=== PATIENT | female | born 1990 | race Caucasian/White ===

== ENCOUNTER 2023-02-21 08:28 | Outpatient (CLI) | payer OTHER, SELFPAY ==
--- NOTE | 2023-02-21 08:45 | CRLHL7_ITS ---
For Patients: As a result of the Cures Act, medical imaging exams and procedure reports are released immediately into your electronic medical record. You may view this report before your referring provider. If you have questions, please contact your health care provider. DIGITAL DIAGNOSTIC RIGHT MAMMOGRAM USING TOMOSYNTHESIS AND COMPUTER-AIDED DETECTION RIGHT BREAST ULTRASOUND CLINICAL HISTORY: RIGHT breast lump. COMPARISON: None. TECHNIQUE: Digital RIGHT mammogram in two projections. Tomosynthesis and CAD utilized. Real-time ultrasound imaging of RIGHT breast with imaging documentation. BREAST COMPOSITION: The breast is extremely dense, which lowers the sensitivity of mammography. FINDINGS: 3D CC/MLO RIGHT breast mammogram images submitted. No suspicious masses or architectural distortion. Benign calcifications. No adenopathy. Targeted RIGHT breast ultrasound performed in the area of concern 1 o`clock 12 cm from the nipple. In this location there is a solid and cystic structure measuring 1.7 x 0.5 x 1.7 cm. Slight internal vascularity noted. Increase through-transmission is present. IMPRESSION: Benign lactating adenoma. No evidence of malignancy. No abscess or galactocele. RECOMMENDATIONS: Clinical follow-up. Age-appropriate screening mammography. Results and recommendations discussed with the patient. BI-RADS Category 2: Benign A lay language report of this examination will be provided to the patient. Dictated by Alex Osuna MD @ 02/21/2023 12:17:37 PM /Dictated by: Alex Osuna MD @ 02/21/2023 12:17:00 PM (Electronically Signed)
--- NOTE | 2023-02-21 09:15 | CRLHL7_ITS ---
For Patients: As a result of the Cures Act, medical imaging exams and procedure reports are released immediately into your electronic medical record. You may view this report before your referring provider. If you have questions, please contact your health care provider. PLEASE SEE DIGITAL DIAGNOSTIC RIGHT MAMMOGRAM PERFORMED SAME DAY CRL:[email or web address]/Dictated by: Alex Osuna MD @ 02/21/2023 12:17:00 PM (Electronically Signed)
== END 2023-02-21 08:29 | disposition home or self-care (01) ==
LOC: MAMMO 08:29
PROVIDERS: PCP Physician Assistant Medical; Visit Provider Physician Assistant
DX: N63.10 Unspecified lump in the right breast, unspecified quadrant (principal)
CPT/HCPCS: 76642; 77065; G0279

== ENCOUNTER 2023-08-29 07:37 | Outpatient (CLI) | payer OTHER, SELFPAY | END 2023-08-29 07:38 | disposition home or self-care (01) | PROVIDERS: PCP Physician Assistant Medical; Visit Provider Physician Assistant Medical | DX: D62 Acute posthemorrhagic anemia (principal); Z13.220 Encounter for screening for lipoid disorders; Z13.29 Encounter for screening for other suspected endocrine disorder; Z13.228 Encounter for screening for other metabolic disorders | CPT/HCPCS: 80053; 80061; 82728; 84443 ==